=== PATIENT | male | born 1970 | race Hispanic/Latino ===

== ENCOUNTER 2017-03-21 00:43 | Emergency (ER) | payer MEDICAID, OTHER ==
[2017-03-21 00:43] VITALS: BMI 26.6
[2017-03-21] MEDS ORDERED: Sodium Chloride 0.9% 1,000 ML IV ONE ×3 (01:42→03:11)
[2017-03-21] MEDS ORDERED: Iohexol 240 (50 ml) PO ONE (01:44)
[2017-03-21] MEDS ORDERED: Sodium Chloride 0.9% 1,000 ML ONE ×2 (02:01→03:17)
[2017-03-21 02:04] LABS: BASO # 0.1 K/uL (0.0-0.2); BASO % 0.6 % (0.0-2.0); EOS # 0.2 K/uL (0.0-0.7); EOS % 2.2 % (0.0-4.0); HEMATOCRIT 45.1 % (35.0-51.0); LYMPH # 0.6 K/uL (1.0-4.3); LYMPH % 5.1 % (20.0-40.0); MEAN CELL VOLUME 78.5 fL (80.0-94.0); MEAN CORPUSCULAR HGB CONC 31.8 g/dL (33.0-37.0); MEAN PLATELET VOLUME 10.8 fL (7.2-11.7); MONO # 0.5 K/uL (0.0-0.8); MONO % 4.7 % (0.0-10.0); NRBC % 0.1 % (0.0-2.0); PLATELET COUNT 139 K/uL (130-400); RED CELL DISTRIBUTION WIDTH 13.2 % (11.5-14.5); WHITE BLOOD COUNT 11.2 K/uL (4.8-10.8)
[2017-03-21 02:13] LABS: CHLORIDE 100 mmol/L (98-107); POTASSIUM 3.8 mmol/L (3.6-5.2); SODIUM 139 mmol/L (132-148)
[2017-03-21 02:15] LABS: BILIRUBIN,TOTAL 1.2 mg/dL (0.2-1.3); CARBON DIOXIDE 28 mmol/L (22-30); GFR AFRICAN-AMERICAN > 60
[2017-03-21 02:16] LABS: ALB/GLOB RATIO 1.3 (1.0-2.1); ALKALINE PHOSPHATASE 46 U/L (38-126); ALT/SGPT 25 U/L (21-72); AST/SGOT 30 U/L (17-59); BLOOD UREA NITROGEN 20 mg/dL (9-20); GLUCOSE,RANDOM 101 mg/dL (75-110)
--- NOTE | 2017-03-21 02:40 | C.PDOC ---
History Of Present Illness A 47 y/o male c/o abdominal pain and diarrhea for 2 hrs [employer]. Pt notes nausea but denies vomiting, dysuria, hematuria, fever, chills, or any other complaints. Time Seen by Provider: 03/21/17 01:38 Chief Complaint (Nursing): Abdominal Pain History Per: Patient History/Exam Limitations: no limitations Onset/Duration Of Symptoms: Hrs Current Symptoms Are (Timing): Still Present Severity: Mild Location Of Pain/Discomfort: Diffuse Associated Symptoms: Nausea Recent travel outside of the [place]: No Additional History Per: Patient Past Medical History Reviewed: Historical Data, Nursing Documentation, Vital Signs Vital Signs: Last Vital Signs Temp 100.9 F H 03/21/17 03:14 Pulse 92 H 03/21/17 03:10 Resp 17 03/21/17 03:10 BP 108/75 03/21/17 03:10 Pulse Ox 99 03/21/17 05:26 - Medical History PMH: Gastritis Denies: Chronic Kidney Disease Surgical History: Appendectomy, Endoscopy - [facility] Procedures CLOSED ENDOSCOPIC BIOPSY OF LARGE INTESTINE (04/04/15) COLONOSCOPY (11/30/13) ESOPHAGOGASTRODUODENOSCOPY [EGD] W/CLOSED BIOPSY (03/30/15) OTHER ENDOSCOPY OF SM INTEST (11/16/13) Family History: States: Unknown Family Hx - Social History Hx Alcohol Use: Yes Hx Substance Use: No - Immunization History Hx Tetanus Toxoid Vaccination: No Hx Influenza Vaccination: No Review Of Systems Except As Marked, All Systems Reviewed And Found Negative. Constitutional: Negative for: Fever, Chills Gastrointestinal: Positive for: Nausea, Abdominal Pain, Diarrhea. Negative for : Vomiting Genitourinary: Negative for: Dysuria, Hematuria Physical Exam - Physical Exam Appears: Non-toxic, In Acute Distress (Mild distress) Skin: Warm, Dry Head: Atraumatic, Normacephalic Eye(s): bilateral: Normal Inspection Chest: Symmetrical Cardiovascular: Rhythm Regular, No Murmur Respiratory: Normal Breath Sounds, No Accessory Muscle Use, No Rales, No Rhonchi , No Wheezing Gastrointestinal/Abdominal: Soft, Tenderness (LLQ tenderness), No Guarding, No Rebound Back: No CVA Tenderness, Vertebral Tenderness (Left anterior lumbar tenderness) Neurological/Psych: Oriented x3, Normal Speech, Normal Cognition, Other (No focal deficit) ED Course And Treatment - Laboratory Results Result Diagrams: 03/21/17 02:00 03/21/17 02:00 O2 Sat by Pulse Oximetry: 99 (RA) Pulse Ox Interpretation: Normal - CT Scan/US CT Abb/Pel w/ contrast Other Rad Studies (CT/US): Interpreted By Me, Read By Radiologist CT/US Interpretation: EXAM: CT Abdomen and Pelvis With Intravenous Contrast. CLINICAL HISTORY: 47 years old, male; Pain; Abdominal pain; Additional info: Left sided abd pain. TECHNIQUE: Axial computed tomography images of the abdomen and pelvis with intravenous contrast. This CT. exam was performed using one or more of the following dose reduction techniques: automated. exposure control, adjustment of the mA and/or kV according to patient size, and/ or use of iterative. reconstruction technique. Coronal and sagittal reformatted images were created and reviewed. CONTRAST: 100 mL of [id number] administered intravenously. EXAM DATE/TIME: 03/21/2017 1:43 AM. COMPARISON: No relevant prior studies available. FINDINGS: Cholecystectomy clips are present. The liver is normal. The spleen is normal. The pancreas is normal. No hydronephrosis or perinephric stranding. There are markedly thickened loops of small bowel most notably in the right abdomen where a loop. of distal ileum has a 7 mm wall thickness. There is a small amount of haziness in the adjacent fat as. well as numerous small lymph nodes. Fold thickening is present within small bowel in the left upper. quadrant and right lower abdomen. Would favor infectious inflammatory etiology/enteritis. Conceivably ischemic etiology could be included in the differential diagnosis for this degree of. thickening however felt unlikely. No pneumatosis. The SMA and CINTIA are patent. There is no bowel obstruction. Contrast reaches the colon. The appendix is not identified however there are no secondary signs of appendicitis such as. pericecal stranding. IMPRESSION: Wall and fold thickening of multiple small bowel loops, most notably the distal ileal loops likely. representing severe enteritis as discussed above. 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 Plans: CT Abd/Pel Omnipaque Toradol Zofran IV fluids Reassess Disposition Counseled Patient/Family Regarding: Diagnosis - Disposition Referrals: Jose Antonio Coleman MD [Primary Care Provider] - Disposition: HOME/ ROUTINE Disposition Time: 05:26 Condition: STABLE Prescriptions: Phenobarb/Hyoscy/Atropine/Scop [ Tablet] 16.2 mg PO Q6 #10 tablet Instructions: Gastroenteritis (DC), Acute Diarrhea (ED), Abdominal Pain (ED) - POA Present On Arrival: None - Clinical Impression Clinical Impression: Abdominal pain, Gastroenteritis, Diarrhea - Scribe Statement The provider has reviewed the documentation as recorded by the Scribe Tonny ortez All medical record entries made by the Jonathonibe were at my direction and personally dictated by me. I have reviewed the chart and agree that the record accurately reflects my personal performance of the history, physical exam, medical decision making, and the department course for this patient. I have also personally directed, reviewed, and agree with the discharge instructions and disposition.
[2017-03-21] MEDS ORDERED: Iohexol 240 (50 ml) ONE (02:51)
[2017-03-21 03:26] LABS: EOSINOPHIL 2 % (0-4); NEUTROPHIL 82 % (50-75); TOTAL CELLS COUNTED 100
[2017-03-21] MEDS ORDERED: Iohexol 350mg/ml 100 ML ONE (04:07)
--- NOTE | 2017-03-21 05:23 | CT ---
EXAM: CT Abdomen and Pelvis With Intravenous Contrast CLINICAL HISTORY: 47 years old, male; Pain; Abdominal pain; Additional info: Left sided abd pain TECHNIQUE: Axial computed tomography images of the abdomen and pelvis with intravenous contrast. This CT exam was performed using one or more of the following dose reduction techniques: automated exposure control, adjustment of the mA and/or kV according to patient size, and/or use of iterative reconstruction technique. Coronal and sagittal reformatted images were created and reviewed. CONTRAST: 100 mL of [id number] administered intravenously. EXAM DATE/TIME: 03/21/2017 1:43 AM COMPARISON: No relevant prior studies available. FINDINGS: Cholecystectomy clips are present. The liver is normal. The spleen is normal. The pancreas is normal. No hydronephrosis or perinephric stranding. There are markedly thickened loops of small bowel most notably in the right abdomen where a loop of distal ileum has a 7 mm wall thickness. There is a small amount of haziness in the adjacent fat as well as numerous small lymph nodes. Fold thickening is present within small bowel in the left upper quadrant and right lower abdomen. Would favor infectious inflammatory etiology/enteritis. Conceivably ischemic etiology could be included in the differential diagnosis for this degree of thickening however felt unlikely. No pneumatosis. The SMA and CINTIA are patent. There is no bowel obstruction. Contrast reaches the colon. The appendix is not identified however there are no secondary signs of appendicitis such as pericecal stranding. IMPRESSION: Wall and fold thickening of multiple small bowel loops, most notably the distal ileal loops likely representing severe enteritis as discussed above.
[2017-03-21 05:26] VITALS: O2SAT 99
[2017-03-21 05:45] VITALS: BP 110/76; PULSE 90; RESP 16; TEMP 98.1
== END 2017-03-21 05:45 | disposition home or self-care (01) ==
LOC: C.ER 00:43 → SUPCPDRO 00:43 → C.ER 05:45
DX: K52.9 Noninfective gastroenteritis and colitis, unspecified (principal); R10.32 Left lower quadrant pain
CPT/HCPCS: 74177; 80053; 83690; 85025; 96361; 96374; 96375; 99284; J1885; J2405; J7040; Q9966; Q9967

== ENCOUNTER 2017-08-23 14:19 | Emergency (ER) | payer MEDICAID ==
[2017-08-23 14:33] VITALS: BMI 25.7
[2017-08-23 14:35] VITALS: RESP 17; TEMP 98.3
[2017-08-23] MEDS ORDERED: Naproxen 550 mg Tab PO STA (15:09)
[2017-08-23] MEDS ORDERED: Naproxen 550 mg Tab PO ONE (15:23)
--- NOTE | 2017-08-23 15:40 | RAD ---
Lumbar spine three views History: Low back pain. Comparison: None available. Findings: Minimal retrolisthesis of L2 on L3 and L3 on L4. Mild lower level facet hypertrophy and sclerosis. Minimal anterior osteophytosis at the L4-5 and L5-S1 levels. Surgical clips in the right upper abdomen. Impression: Mild degenerative changes. If pain persists, consider MRI.
--- NOTE | 2017-08-23 15:44 | C.PDOC ---
History Of Present Illness 47 y/o male presents to ED for evaluation of lower back pain for the last 2 days. Pt admits to lifting heavy objects prior to onset of symptoms. Notes that pain is non-radiating and is worse with movement. Denies dysuria, hematuria, bowel/bladder incontinence, abdominal pain, sensory changes, or fever. Time Seen by Provider: 08/23/17 14:35 Chief Complaint (Nursing): Back Pain History Per: Patient History/Exam Limitations: no limitations Onset/Duration Of Symptoms: Days (2) Current Symptoms Are (Timing): Still Present Quality Of Discomfort: "Pain" Previous Symptoms: Back Pain Associated Symptoms: None. denies: Incontinence, New Weakness, New Numbness Exacerbating Factor(s): Movement Additional History Per: Patient Past Medical History Reviewed: Historical Data, Nursing Documentation, Vital Signs Vital Signs: Last Vital Signs Temp 98.3 F 08/23/17 14:34 Pulse 68 08/23/17 16:05 Resp 17 08/23/17 16:05 BP 110/64 08/23/17 16:05 Pulse Ox 96 08/23/17 16:57 - Medical History PMH: Gastritis Denies: Chronic Kidney Disease Surgical History: Appendectomy, Endoscopy - [facility] Procedures CLOSED ENDOSCOPIC BIOPSY OF LARGE INTESTINE (04/04/15) COLONOSCOPY (11/30/13) ESOPHAGOGASTRODUODENOSCOPY [EGD] W/CLOSED BIOPSY (03/30/15) OTHER ENDOSCOPY OF SM INTEST (11/16/13) Family History: States: Unknown Family Hx - Social History Hx Alcohol Use: Yes Hx Substance Use: No - Immunization History Hx Tetanus Toxoid Vaccination: No Hx Influenza Vaccination: No Review Of Systems Except As Marked, All Systems Reviewed And Found Negative. Constitutional: Negative for: Fever, Chills Gastrointestinal: Negative for: Nausea, Vomiting, Abdominal Pain Genitourinary: Negative for: Dysuria, Frequency, Incontinence, Hematuria Musculoskeletal: Positive for: Back Pain Neurological: Negative for: Weakness, Numbness Physical Exam - Physical Exam Appears: Non-toxic, No Acute Distress Skin: Normal Color, Warm, Dry Head: Atraumatic, Normacephalic Eye(s): bilateral: Normal Inspection Oral Mucosa: Moist Neck: Supple Chest: Symmetrical Cardiovascular: Rhythm Regular, No Murmur Respiratory: Normal Breath Sounds, No Rales, No Rhonchi, No Wheezing Gastrointestinal/Abdominal: Soft, No Tenderness Back: No CVA Tenderness, No Vertebral Tenderness, Paraspinal Tenderness ( paralumbar) Extremity: Normal ROM Neurological/Psych: Oriented x3, Normal Speech ED Course And Treatment O2 Sat by Pulse Oximetry: 96 Pulse Ox Interpretation: Normal - Other Rad LS spine X-Ray: Viewed By Me, Read By Radiologist Interpretation: Accession No. : [id number]. Patient Name / ID : MARGARET BISHOP / [id number]. Exam Date : 08/23/2017 15:17:26 ( Approved ). Study Comment : Sex / Age : M / 47Y. Creator : Joey Tracy MD. Dictator : Joey Tracy MD. Director Sports : Cherry Pitter : Joey Tracy MD. Approver2 : Report Date : 08/23/2017 15:38:36. My Comment : . Lumbar spine three views. History: Low back pain. Comparison: None available. Findings: Minimal retrolisthesis of L2 on L3 and L3 on L4. Mild lower level facet hypertrophy and sclerosis. Minimal anterior osteophytosis at the L4-5 and L5-S1 levels. Surgical clips in the right upper abdomen. Impression: Mild degenerative changes. If pain persists, consider MRI. Progress Note: LS spine ordered and reviewed. Pt was given Naproxen, and Flexeril. On reassessment, patient is resting comfortably, with improvement of back pain. Patient remains afebrile, with no bony tenderness, extremity numbness or weakness, or abdominal pain. Patient is ambulatory in the emergency department with no signs of discomfort. Patient was advised to follow up with physician/clinic in 1-2 days. Disposition Counseled Patient/Family Regarding: Studies Performed, Diagnosis, Need For Followup, Rx Given - Disposition Referrals: Jose Antonio Coleman MD [Staff Provider] - Disposition: HOME/ ROUTINE Disposition Time: 15:45 Condition: STABLE Additional Instructions: SEGUIMIENTO CON PECK MDICO EN 1-2 ONEILL USE MEDICAMENTOS SEGN SEA NECESARIO REGRESE AL JANET DE EMERGENCIA SI LOS SNTOMAS EMPEORAN Prescriptions: Cyclobenzaprine [Cyclobenzaprine HCl] 10 mg PO BID PRN #15 tab PRN Reason: Muscle Spasm Naproxen [Naprosyn] 1 tab PO BID PRN #25 tab PRN Reason: Pain Instructions: Acute Low Back Pain (ED) Forms: [employer] (Thai) Print Language: INDONESIAN - POA Present On Arrival: None - Clinical Impression Clinical Impression: Low back pain - Scribe Statement The provider has reviewed the documentation as recorded by the Scribe Luz Elena Rm All medical record entries made by the Scribe were at my direction and personally dictated by me. I have reviewed the chart and agree that the record accurately reflects my personal performance of the history, physical exam, medical decision making, and the department course for this patient. I have also personally directed, reviewed, and agree with the discharge instructions and disposition.
[2017-08-23 16:05] VITALS: BP 110/64; PULSE 68
[2017-08-23 16:57] VITALS: O2SAT 96
== END 2017-08-23 16:06 | disposition home or self-care (01) ==
LOC: C.ER 14:19
DX: M54.5 Low back pain (principal)